=== PATIENT | male | born 1960 | race Caucasian/White ===

== ENCOUNTER 2017-05-14 13:30 | Emergency (ER) | payer OTHER ==
[~2017-05-14] VITALS: Ht 403.9 cm; Wt 98.9 kg
[~2017-05-14 13:30] MED LIST: ACETAMINOPHEN325 M1 PO; ACETAMINOPHN-T1 EACH PO; ADDERALL 30 MG30 MG PO; ALBUTEROL2.5 MG/0.5 INH; ALPRAZOLAM 0.0.25 M1 PO; AMBIEN 10 MG TA10 MG PO; AMBIEN 5 MG TABL5 M1 PO; AMITRIPTYLINE H50 M3; ANDROGEL150 GM; ANDROGEL2.5 G1 TD; ASPIR 8181 MG PO; ASPIRIN EC81 M1 PO; ASPIRIN325; ASPIRIN325 PO; ATORVASTATIN CA40 MG PO; AZITHROMYCIN 2250 MG PO; BREO ELLIPTA 21 EACH IH; BUSPAR30 MG PO; BUSPIRONE HCL7.5 MG PO; BUSPIRONE PO; CARVEDILOL3.125 MG PO; CARVEDILOL6.25 MG PO; CEFTIN 250 MG250 MG PO; CILOSTAZOL 100100 M1 PO; CILOSTAZOL 100100 MG PO; CLONAZEPAM 0.50.5 M1 PO; COLACE100 MG PO; COMBIVENT INH; COMBIVENT RESPIM4 GM PO; COREG6.25 MG PO; COZAAR 50 MG TA50 M2 PO; CYMBALTA30 MG PO; CYMBALTA60 MG PO; DEPO-TESTO200 MG/1 M SUBQ; ESKALITH300 MG PO; EYE DROPS ALLER15 ML OP; FORTESTA60 GM TRANSDERM; HYDROCODONE-AP1 EAC6 PO; HYDROCODONE/APAP; HYDROXYZINE PAM25 M1; IBUPROFEN 200200 M1 PO; IMDUR 30 MG TAB30 M1 PO; LASIX 40 MG TAB40 M2 PO; LEXAPRO20 MG PO; LOPRESSOR 12.12.5 MG PO; LOPRESSOR25 PO; LOSARTAN POTASS50 MG PO; LOSARTAN-HCTZ1 EACH PO; LOVASTAT20; METAMUCIL PAC1 UDPKT; METFORMIN HCL500 MG PO; MEVACOR 20 MG T20 MG PO; MUCINEX TA600 MG/TA2 PO; NIFEDIAC PO; NIFEDICAL XL60 MG PO; NIFEDIPINE ER60 M1 PO; NITROGLYCERIN0.4 MG SUBLING; NIZORAL120 ML TP; NORCO 10-325 T1 EACH PO; NORCO 5-325 TA1 EACH PO; OMEPRAZOLE 20 M20 MG PO; OMEPRAZOLE20 M2 PO; OXYCODONE HCL 55 MG PO; OXYCODONE HCL5 M1; OXYCONTIN10 M1; PERCOCET 5-3251 EACH PO; PLAVIX 75 MG TA75 M1 PO; PREDNISONE 20 M20 MG PO; SIMVASTATIN40 MG PO; TYLENOL325 MG PO; VALIUM5 MG PO; VITAMIN D1000 UNI1 PO; XANAX 0.25 MG0.25 MG PO; XARELTO10 M1; ZOCOR40 MG PO; ZOLOFT50 MG PO; ZYRTEC10 MG PO
[2017-05-14 14:29] LABS: ABSOLUTE BASOPHILS 0.1 thou/uL (0.0-0.2); ABSOLUTE EOSINOPHILS 0.5 thou/uL (0.0-0.7); ABSOLUTE LYMPHOCYTES 1.3 thou/uL (0.8-5.3); ABSOLUTE MONOCYTES 0.5 thou/uL (0.0-1.2); ABSOLUTE NEUTROPHILS 4.7 thou/uL (1.6-8.1); BASOPHILS 0.7 %; EOSINOPHILS 7.2 %; HEMATOCRIT 42.3 % (42.0-52.0); HEMOGLOBIN 14.3 gm/dL (14.0-18.0); LYMPHOCYTES 18.5 %; MCH 27.7 pg (26.0-34.0); MCHC 33.9 g/dL (28.0-37.0); MCV 81.8 fL (80.0-100.0); MONOCYTES 7.3 %; MPV 9.6 fl. (7.2-11.1); NUCLEATED RBCS 0 /100WBC; PLATELET COUNT* 220 thou/uL (150-400); POLYS 66.3 %; RBC 5.17 mil/uL (4.50-6.00); RDW-CV 15.2 % (10.5-14.5); WBC 7.1 thou/uL (4.0-11.0)
[2017-05-14 14:37] LABS: CALCIUM 9.1 mg/dL (8.5-10.1); POTASSIUM 3.9 mmol/L (3.5-5.1)
[2017-05-14 14:39] LABS: APTT 26.7 Seconds (25.0-31.3); INR 1.1; PROTIME 10.7 Seconds (9.20-11.50)
[2017-05-14 14:42] LABS: ALBUMIN 3.6 g/dL (3.4-5.0); TOTAL BILIRUBIN 0.4 mg/dL (<0.1-1.0)
[2017-05-14] MEDS ORDERED: PROCTOFOAM-HC 110 GM TOP (15:30)
[2017-05-14] MEDS ORDERED: TOPICAINE 5113 GM TOP (15:30)
[2017-05-14 15:41] VITALS: BP 111/71
== END 2017-05-14 15:41 | disposition home or self-care (01) ==
LOC: M.ERS 13:30
PROVIDERS: Physician Assistant
DX: K60.2 Anal fissure, unspecified (principal); K62.5 Hemorrhage of anus and rectum; E78.5 Hyperlipidemia, unspecified; I73.89 Other specified peripheral vascular diseases; I11.0 Hypertensive heart disease with heart failure; I50.9 Heart failure, unspecified; F17.210 Nicotine dependence, cigarettes, uncomplicated; Z96.651 Presence of right artificial knee joint; Z90.49 Acquired absence of other specified parts of digestive tract; Z86.73 Personal history of transient ischemic attack (TIA), and cerebral infarction without residual deficits; Z91.041 Radiographic dye allergy status; Z88.8 Allergy status to other drugs, medicaments and biological substances